=== PATIENT | female | born 1980 | race Caucasian/White ===

== ENCOUNTER 2016-09-18 09:40 | Emergency (ER) | payer MEDICAID ==
[~2016-09-18] VITALS: Ht 157.5 cm; Wt 59.0 kg
[~2016-09-18 09:40] MED LIST: ACET500C5 PO; HYDR-906 PO; IBUP-1542 PO; IBUP200C PO; OSLT75C PO; PROM6.25 PO; UDROBDM PO; [UNRECOGNIZED DRUG - REMARK]
[2016-09-18 11:00] VITALS: Ht 157.5 cm; Wt 59.0 kg
[2016-09-18] MEDS ORDERED: SOD CHLORIDE 0.9% 1,000 ML IV STA (11:01)
[2016-09-18] MEDS ORDERED: METOCLOPRAMIDE 10 MG INJ IV STA (11:01)
--- NOTE | 2016-09-18 11:44 | RADRPT ---
PROCEDURE: OBSTETRICAL ULTRASOUND WITH ENDOVAGINAL IMAGES CLINICAL INDICATION: PAIN TECHNIQUE: Multiple sonographic images of the pelvis were obtained utilizing a transabdominal and endovaginal technique. The images were reviewed on a PACS workstation. COMPARISON: Obstetrical ultrasound from 05/21/2016 LMP: 06/12/2016 FINDINGS: There is a single live intrauterine with heart rate of 159 beats per minute, mean sa c diameter of 4.20 cm, yolk sac, and crown-rump length of 4.84 cm which is consistent with a gestati onal age of 10 weeks, 5 days . The estimated date of delivery by ultrasound is 04/11/2017 . The estimated gestational age by LMP is 14 weeks, 0 days . The estimated date of delivery by LMP is it is 03/19/2017 . Bilateral ovaries are not visualized. There are no abnormal adnexal masses. No significant pelvic free fluid is identified. IMPRESSION: Single live intrauterine consistent with a gestational age of 10 weeks, 5 days . The estimated date of delivery is 04/11/2017 . Dating by ultrasound is within 3 weeks and 2 days of dating by LMP. Bilateral ovaries are not visualized. There are no abnormal adnexal masses. RPTAT: EE Physician Kizzy Date Time Electronically viewed and signed by Physician Kizzy on 09/18/2016 11:43 RA/
[2016-09-18 11:49] LABS: ADD SCAN DIFF NO
[2016-09-18 11:50] LABS: EOSINOPHILS % 0.6 % (0.0-7.0); HEMATOCRIT 39.5 % (37.0-47.0); HEMOGLOBIN 13.2 g/dl (12.0-16.0); LYMPHOCYTES # 0.8 10^3/ul (0.8-2.9); LYMPHOCYTES % 16.9 % (15.0-51.0); MEAN CORPUSCULAR HEMOGLOBIN 27.5 pg (29.0-33.0); MEAN CORPUSCULAR HGB CONC 33.4 g/dl (32.0-37.0); MEAN CORPUSCULAR VOLUME 82.3 fl (82.0-101.0); MEAN PLATELET VOLUME 10.3 fl (7.4-10.4); MONOCYTE # 0.5 10^3/ul (0.3-0.9); MONOCYTES % 10.9 % (0.0-11.0); NEUTROPHIL # 3.3 10^3/ul (1.6-7.5); NEUTROPHILS % 71.2 % (39.0-77.0); PLATELET COUNT 221 10^3/UL (140-415); RED CELL DISTRIBUTION WIDTH 13.3 % (11.5-14.5); WHITE BLOOD COUNT 4.7 10^3/ul (4.8-10.8)
[2016-09-18 12:07] LABS: ALBUMIN 3.8 g/dl (3.3-4.9)
[2016-09-18 12:08] LABS: POTASSIUM 3.3 mmol/L (3.5-5.1)
[2016-09-18 12:10] LABS: ALBUMIN/GLOBULIN RATIO 1.02; BILIRUBIN,INDIRECT 0.4 mg/dl (0-1.1); BILIRUBIN,TOTAL 0.4 mg/dl (0.2-1.3); CREATININE 0.48 mg/dl (0.44-1.00); TOTAL PROTEIN 7.5 g/dl (6.1-8.1)
[2016-09-18 12:11] LABS: CALCIUM 8.6 mg/dl (8.4-10.2)
[2016-09-18] MEDS ORDERED: POTASSIUM CHLORIDE (SR) 20 MEQ TAB PO STA (12:17)
[2016-09-18] MEDS ORDERED: ACETAMINOPHEN 500 MG TAB PO STA (12:22)
[2016-09-18] MEDS ORDERED: ACET500C5 PO (12:26)
[2016-09-18] MEDS ORDERED: METO10TA92 PO (12:26)
--- NOTE | 2016-09-18 12:31 | ERD ---
ER Documentation Chief Complaint Date/Time DATE: 09/18/16 TIME: 12:29 Chief Complaint c/o N/V/D since yesterday; no vag. bleeding HPI This 35 year female presents with nausea vomiting and diarrhea since yesterday. She denies fevers, vaginal bleeding or abdominal pain, dysuria. She is approximately 11 weeks by dates. She is a G4 para 1. She is receiving care but is unsure who her OB as per ROS All systems reviewed and are negative except as per history of present illness. Medications Home Meds Active Scripts Acetaminophen* (Tylophen*) 500 Mg Capsule, 1 CAP PO Q6H Y for PAIN AND OR ELEVATED TEMP, #15 CAP Prov:VINCENZO MEYER MD 09/18/16 Metoclopramide* (Reglan*) 10 Mg Tablet, 10 MG PO Q6 Y for NAUSEA AND/OR VOMITING , #20 TAB Prov:VINCENZO MEYER MD 09/18/16 Hydrocodone/Acetaminophen ([place]ia 5-325 Tablet) 1 Each Tablet, 1 TAB PO Q6H Y for PAIN, #20 TAB Prov:AMADOR ALBERTO 05/21/16 Ibuprofen* (Motrin*) 600 Mg Tab, 600 MG PO Q6, #30 TAB Prov:AMADOR ALBERTO 05/21/16 Acetaminophen* (Tylophen*) 500 Mg Capsule, 1 CAP PO Q6H Y for PAIN AND OR ELEVATED TEMP, #30 CAP Prov:HERMINIO RUIZ PA-C 05/21/16 Promethazine w/Codeine* (Phenergan w/Codeine* Syrup) 5 Ml Syrup, 5 ML PO QHS Y for COUGH, #40 ML 0 Refills Prov:DARNELL ORDAZ PA-C 07/26/15 Guaifenesin-Dextromethorphan* (Robitussin* DM) 100MG/10MG/5ML Syrup, 5 ML PO Q6H Y for COUGH, #120 ML 0 Refills Prov:DARNELL ORDAZ PA-C 07/26/15 Ibuprofen* (Ibuprofen*) 200 Mg Capsule, 200 MG PO Q6, #30 CAP 0 Refills Prov:DARNELL ORDAZ PA-C 07/26/15 Oseltamivir Phosphate* (Tamiflu*) 75 Mg Capsule, 75 MG PO BID, #10 CAP 0 Refills Prov:DARNELL ORDAZ PA-C 07/26/15 Reported Medications [Bc Pills - "Lestril"] No Conflict Check 10/14/12 Allergies Allergies: Coded Allergies: No Known Allergy (Unverified , 07/26/15) PMhx/Soc Medical and Surgical Hx: pt denies Medical Hx History of Surgery: Yes (APPENDECTOMY (2002)) Anesthesia Reaction: No Hx Neurological Disorder: No Hx Respiratory Disorders: No Hx Cardiac Disorders: No Hx Psychiatric Problems: No Hx Miscellaneous Medical Probl: No Hx Alcohol Use: No Hx Substance Use: No Hx Tobacco Use: No Physical Exam Vitals Vital Signs Date Time Temp Pulse Resp B/P Pulse Ox O2 Delivery O2 Flow Rate FiO2 09/18/16 11:00 98.2 75 18 113/76 100 Physical Exam Const: [] Alert, [id number] per Head: Atraumatic Eyes: Normal Conjunctiva ENT: Normal External Ears, Nose and Mouth. Neck: Full range of motion..~ No meningismus. Resp: Clear to auscultation bilaterally Cardio: Regular rate and rhythm, no murmurs Abd: Soft, non tender, non distended. Normal bowel sounds Skin: No petechiae or rashes Back: No midline or flank tenderness Ext: No cyanosis, or edema Neur: Awake and alert Psych: Normal Mood and Affect Result Diagram: 09/18/16 1120 09/18/16 1120 Results 24 hrs Laboratory Tests Test 09/18/16 11:20 White Blood Count 4.710^3/ul Red Blood Count 4.8010^6/ul Hemoglobin 13.2g/dl Hematocrit 39.5% Mean Corpuscular Volume 82.3fl Mean Corpuscular Hemoglobin 27.5pg Mean Corpuscular Hemoglobin Concent 33.4g/dl Red Cell Distribution Width 13.3% Platelet Count 87306^3/UL Mean Platelet Volume 10.3fl Neutrophils % 71.2% Lymphocytes % 16.9% Monocytes % 10.9% Eosinophils % 0.6% Basophils % 0.0% Nucleated Red Blood Cells % 0.0/100WBC Neutrophils # 3.310^3/ul Lymphocytes # 0.810^3/ul Monocytes # 0.510^3/ul Eosinophils # 0.010^3/ul Basophils # 0.010^3/ul Nucleated Red Blood Cells # 0.010^3/ul Sodium Level 134mmol/L Potassium Level 3.3mmol/L Chloride Level 100mmol/L Carbon Dioxide Level 22mmol/L Anion Gap 15 Blood Urea Nitrogen 7mg/dl Creatinine 0.48mg/dl Glucose Level 86mg/dl Calcium Level 8.6mg/dl Total Bilirubin 0.4mg/dl Direct Bilirubin 0.00mg/dl Indirect Bilirubin 0.4mg/dl Aspartate Amino Transf (AST/SGOT) 34IU/L Alanine Aminotransferase (ALT/SGPT) 33IU/L Alkaline Phosphatase 76IU/L Total Protein 7.5g/dl Albumin 3.8g/dl Globulin 3.70g/dl Albumin/Globulin Ratio 1.02 Lipase 30U/L Current Medications Medications (Trade) Dose Ordered Sig/Kath Route PRN Reason Start Time Stop Time Status Last Admin Dose Admin Sodium Chloride (NS) 1,000 ml @ 1,000 mls/hr Q1H STAT IV 09/18/16 11:01 09/18/16 12:00 DC 09/18/16 11:19 Metoclopramide HCl (Reglan) 10 mg ONCE STAT IV 09/18/16 11:01 09/18/16 11:04 DC 09/18/16 11:19 Potassium Chloride (Klor-Con 20) 40 meq ONCE STAT PO 09/18/16 12:17 09/18/16 12:21 DC Acetaminophen (Tylenol Tab) 500 mg ONCE STAT PO 09/18/16 12:22 09/18/16 12:23 DC Procedures/MDM Pelvic ultrasound shows a normal-appearing first trimester intrauterine without evidence of ectopic , acute findings. Potassium is 3.3 and CBC shows decreased leukocytes with no additional acute findings. Patient was given potassium 40 mg by mouth, Tylenol 500 mg and Reglan 10 mg IV in addition to 1 L normal saline IV. Patient felt better after observation treatment. Patient presents with vomiting diarrhea of one days duration. I suspect she has an acute viral gastroenteritis. There is no signs or symptoms of ectopic , acute abdomen, symptoms of UTI, obstruction, additional complications of or emergent causes of vomiting diarrhea. Patient will be treated with Reglan, instructions for clear fluids at home instructed to recheck with primary doctor this week return to the ER for new or worsening symptoms. Departure Diagnosis: Primary Impression: Vomiting and diarrhea Condition: Stable Patient Instructions: Vomiting And Diarrhea, Nonspecific (Adult) Additional Instructions: Examines normal hoy. Cheque otro vez con sanchez doctor primario en el proximo amador or regresa para mas o nueva simptomas. probablamente un virus que dura 2-4 amador. cheque otro rekha el proximo breanna para mas simptomas- vomito, dolor, carlyle, problemas con respirando, o con sanchez doctor primario. VINCENZO MEYER MD Sep 18, 2016 12:31
[2016-09-18 13:08] VITALS: BP 108/67; PULSE 83; RESP 20; TEMP 98.3
[2016-09-18 13:59] LABS: ADD UMIC YES; URINE GLUCOSE (Dip) NEGATIVE (NEGATIVE); URINE TOTAL PROTEIN (Dip) NEGATIVE (NEGATIVE)
[2016-09-18 14:00] LABS: URINE BILIRUBIN (Dip) NEGATIVE (NEGATIVE); URINE BLOOD (Dip) TRACE (NEGATIVE); URINE KETONES (Dip) 1+ (NEGATIVE); URINE NITRITE (Dip) NEGATIVE (NEGATIVE); URINE UROBILINOGEN (Dip) 0.2 E.U./dL (0.1-1.0)
[2016-09-18 14:01] LABS: URINE LEUKOCYTE ESTERASE (Dip) 1+ (NEGATIVE)
[2016-09-18 14:07] LABS: BACTERIA,URINE FEW; URINE COLOR LT. YELLOW (YELLOW); URINE RBCS 0-2 /HPF (0)
== END 2016-09-18 13:09 | disposition home or self-care (01) ==
LOC: FTE 09:40
DX: O21.9 Vomiting of pregnancy, unspecified (principal); O99.89 Other specified diseases and conditions complicating pregnancy, childbirth and the puerperium; R19.7 Diarrhea, unspecified; Z3A.11 11 weeks gestation of pregnancy
CPT/HCPCS: 36415; 76801; 80053; 81001; 83690; 85025; 96374; J2765; J7030; Z7502; Z7610; 81003

== ENCOUNTER 2016-12-23 10:12 | Outpatient (CLI) | payer MEDICAID ==
[~2016-12-23] VITALS: Ht 152.4 cm; Wt 62.7 kg
[~2016-12-23 10:12] MED LIST changes: +METO10TA92 PO
[2016-12-23] MEDS ORDERED: PRENAT PO (10:34)
[2016-12-23] MEDS ORDERED: FER325 PO (10:34)
[2016-12-23 10:35] VITALS: BP 108/76; PULSE 95; RESP 18; Ht 152.4 cm; Wt 62.7 kg
--- NOTE | 2016-12-23 11:46 | RADRPT ---
PROCEDURE: OB ultrasound for biophysical profile CLINICAL INDICATION: Decreased movement TECHNIQUE: Multiple sonographic images of the pelvis were obtained. Transabdominal views of the g ravid uterus are available for review. The images were reviewed on a PACS workstation. COMPARISON: None FINDINGS: breathing movement = 2/2 tone = 2/2 motion = 2/2 CECILIO = 2/2 CECILIO = 15.1 cm Single live intrauterine with cardiac activity of 126 bpm. position is breech . The placenta is anterior. IMPRESSION: 1. Single live intrauterine gestation. 2. Biophysical profile = 8/8. 3. CECILIO = 15.1 cm. 4. Breech presentation. RPTAT: HH .Muriel Philippe MD, Date Time Electronically viewed and signed by .Muriel Philippe MD, on 12/23/2016 11:45 .G/
--- NOTE | 2016-12-23 12:17 | CONS ---
Date/Time of Note Date/Time of Note DATE: 12/23/16 TIME: 12:09 Consultation Date/Type/Reason Admit Date/Time December 23, 2016 OB triage consult Reason for Consultation This patient is a 36 years old 4 para 2 1 with 2 spontaneous vaginal delivery in the past. Her date of confinement is March 30, 2017 which makes her 26 weeks and 1 day today. She came to OB triage today complaining of low movement since yesterday On examination she is a well-developed well-nourished lady at midterm her body weight was 138 pounds. Her general vital signs are within normal limits with blood pressure of 108/76 pulse rate 95,, respiration 18 and temperature 98.5,, oxygen saturation of room temperature was 99% Constitutional: No chills, No diaphoresis, No disoriented, No febrile, No improved, No no complaints, No other, No poor po, No requiring IVF, No requiring O2 Eyes: No discharge, No no complaints, No other, No pain, No redness, No visual change ENT: No bleeding, No congestion, No discharge, No dysphagia, No no complaints, No other, No pain, No sore throat Respiratory: No cough, No no complaints, No other, No pain, No pleuritic pain, No shortness of breath, No sputum, No wheezing Cardiovascular: No chest pain, No edema, No lightheadedness, No no complaints, No orthopenea, No other, No palpitations, No paroxysmal nocturnal dyspnea Gastrointestinal: No blood, No constipation, No decreased appetite, No diarrhea , No flatus, No nausea, No no complaints, No other, No pain, No passing stool, No vomiting Genitourinary: other (Due to lack of contraction pelvic exam was not performed) , No bleeding, No discharge, No dysuria, No flank pain, No hematuria, No no complaints Musculoskeletal: No back pain, No bone/joint pain, No neck pain, No no complaints, No other, No restricted range of motion, No swelling Skin: No bruising, No erythema, No laceration, No no complaints, No other, No pruritis, No rash, No skin lesions Neurologic: other (Normal knee-jerk reflex), No confusion, No dizziness, No focal-weakness, No headache, No no complaints , No seizure, No syncope Endocrine: No dry skin, No no complaints, No other, No polydypsia, No polyuria , No temp intolerance Additional Comments An ultrasound study was performed for her the report was a single live intrauterine with heart activity of 1 26 bpm, breech presentation Her biophysical profile was 8/8 with CECILIO of 15.1 cm Disposition with these positive finding patient was reassured and was discharged home to be followed in in her obstetrical clinic Social History Smoking Status: Never smoker Exam/Review of Systems Vital Signs Vitals Vital Signs Date Time Temp Pulse Resp B/P Pulse Ox O2 Delivery O2 Flow Rate FiO2 12/23/16 10:35 98.5 95 18 108/76 99 Room Air YAAKOV LINDQUIST MD Dec 23, 2016 12:16
--- NOTE | 2016-12-23 12:27 | TRIAGE ---
OB Triage Datetime Report Generated by CPN: 12/23/2016 12:27 Datetime: 12/23/2016 10:49 Stage of : OB Triage Maternal Assessment Level of Consciousness: Fully Conscious Labor Evaluation Frequency: NONE Monitor Mode: External Resting Tone Ramsay: Relaxed Heart Rate FHR Baseline Rate: 135 Monitor Mode: External US Variability: Moderate 6-25 bpm Accelerations: 10X10 Decelerations: AGA Pain Assessment Pain Scale: 0 Pain Goal: 3 Vaginal Exam Membrane Status: Intact Vaginal Bleeding: None Datetime: 12/23/2016 10:32 Assessment Type: Triage Maternal Assessment Level of Consciousness: Fully Conscious DTR's/Clonus: DTRs 2+; No Clonus Headache: Denies Blurred Vision: No Respiratory Effort: Unlabored; Regular Rhythm; Equal Expansion Breath Sounds, Left: Clear and Equal Breath Sounds, Right: Clear and Equal Nausea/Vomiting: Denies RUQ Epigastric Pain: Denies Lower Extremities Edema: None Degree: None Upper Extremities Edema: None Degree: None Facial Edema: None Fall Risk Assessment History of Falling: (0) No Secondary Diagnosis: (0) No Ambulatory Aid: (0) Bedrest/Nurse Assist IV Therapy: (0) No Gait: (0) Normal/Bedrest/Immobile Mental Status: (0) Oriented to Own Ability Fall Score: 0 Fall Risk Score Definition: No Risk: No action required Datetime: 12/23/2016 10:28 Time of Arrival: 12/23/2016 10:00 EGA: 26.1 Arrived By: Ambulatory Arrived From: Home Chief Complaint: C/O DFM Movement: Decreased Contractions: Denies/Absent Rupture of Membranes: Denies Vaginal Bleeding: None Vaginal Discharge: Denies Recent Sexual Intercouse: Denies Abdominal Trauma: Not Applicable Patient Complaints: None Time Provider Notified: 12/23/2016 10:40 Provider Notified: ROCIO Monitor Mode: External US
== END 2016-12-23 12:30 | disposition home or self-care (01) ==
LOC: OBT 10:12 → L-D 10:13 → OBT 12:30
PROVIDERS: ATTEND Obstetrics & Gynecology
DX: O36.8120 Decreased fetal movements, second trimester, not applicable or unspecified (principal); Z3A.26 26 weeks gestation of pregnancy
CPT/HCPCS: 76818; Z7500; G0463

== ENCOUNTER 2017-03-20 10:31 | Inpatient (IN) | payer BC, MEDICAID ==
[~2017-03-20] VITALS: Ht 152.4 cm; Wt 64.9 kg
[~2017-03-20 10:31] MED LIST changes: -ACET500C5 PO; +FER325 PO; -HYDR-906 PO; -IBUP-1542 PO; -IBUP200C PO; -METO10TA92 PO; -OSLT75C PO; +PRENAT PO; -PROM6.25 PO; -UDROBDM PO; -[UNRECOGNIZED DRUG - REMARK]
[2017-03-20 10:51] VITALS: BP 116/69; PULSE 94; Ht 152.4 cm; Wt 64.9 kg
--- NOTE | 2017-03-20 11:56 | RADRPT ---
PROCEDURE: US OB biophysical profile. CLINICAL INDICATION: decreased movements, SROM TECHNIQUE: Multiple sonographic images of the pelvis were obtained. The images were reviewed on a PACS workstation. COMPARISON: No prior studies are available for comparison. FINDINGS: There is a single viable intrauterine gestation. Cardiac activity is present with 134 beats per min nicolás. There is a vertex presentation. The placenta is anterior. There is no evidence of placental abruption. There is a decreased amount of amniotic fluid with an CECILIO = 7.5 cm. Biophysical profile: movement 2/2 tone 2/2. breathing 2/2 CECILIO 2/2 Total 01/13 RPTAT: AA . IMPRESSION: Normal biophysical profile. Decreased CECILIO. .Eliceo Low MD, Date Time Electronically viewed and signed by .Eliceo Low MD, MD on 03/20/2017 11:55 .S/
[2017-03-20] MEDS ORDERED: LACTATED RINGER'S 1,000 ML IV SCH (12:03)
[2017-03-20] MEDS ORDERED: BUTORPHANOL 2 MG INJ IV PRN (12:30)
[2017-03-20] MEDS ORDERED: AMPICILLIN 2 GM/NS (PMX) 100 ML IV ONE (12:30)
[2017-03-20] MEDS ORDERED: MINERAL OIL LIGHT 10 ML VIAL TOP PRN (12:30)
[2017-03-20] MEDS ORDERED: OXYTOCIN 30 UNITS/LR 500 ML IV SCH ×3 (12:30)
[2017-03-20] MEDS ORDERED: IBUPROFEN 600 MG TAB PO PRN (12:30)
[2017-03-20] MEDS ORDERED: METHYLERGONOVINE 0.2 MG INJ IM PRN (12:30)
[2017-03-20] MEDS ORDERED: LIDOCAINE 1% (MPF) 30 ML INJ INJ PRN (12:30)
[2017-03-20] MEDS ORDERED: OXYTOCIN 30 UNITS/LR 500 ML IV PRN (12:30)
[2017-03-20] MEDS ORDERED: CARBOPROST 250 MCG INJ IM PRN (12:30)
[2017-03-20] MEDS ORDERED: LACTATED RINGER'S 1,000 ML IV PRN (12:30)
[2017-03-20] MEDS ORDERED: MISOPROSTOL 200 MCG TAB PR PRN (12:30)
[2017-03-20 12:54] LABS: BASOPHILS % 0.5 % (0.0-2.0); EOSINOPHILS # 0.1 10^3/ul (0.0-0.5); EOSINOPHILS % 1.8 % (0.0-7.0); HEMATOCRIT 41.7 % (37.0-47.0); HEMOGLOBIN 13.7 g/dl (12.0-16.0); LYMPHOCYTES # 1.8 10^3/ul (0.8-2.9); LYMPHOCYTES % 22.8 % (15.0-51.0); MEAN CORPUSCULAR HEMOGLOBIN 27.6 pg (29.0-33.0); MEAN CORPUSCULAR HGB CONC 32.9 g/dl (32.0-37.0); MEAN CORPUSCULAR VOLUME 83.9 fl (82.0-101.0); MEAN PLATELET VOLUME 11.4 fl (7.4-10.4); MONOCYTE # 0.5 10^3/ul (0.3-0.9); NEUTROPHIL # 5.5 10^3/ul (1.6-7.5); NEUTROPHILS % 68.6 % (39.0-77.0); PLATELET COUNT 188 10^3/UL (140-415); RED BLOOD COUNT 4.97 10^6/ul (4.20-5.40); RED CELL DISTRIBUTION WIDTH 14.5 % (11.5-14.5)
[2017-03-20 13:10] LABS: INR 0.91; PROTIME 12.2 Sec (12.2-14.2)
[2017-03-20 13:11] LABS: PARTIAL THROMBOPLASTIN TIME 28.5 Sec (25.0-35.0)
--- NOTE | 2017-03-20 13:37 | TRIAGE ---
OB Triage Datetime Report Generated by CPN: 03/20/2017 13:37 Datetime: 03/20/2017 12:50 Assessment Type: Admission Assessment Headache: Denies Blurred Vision: No Respiratory Effort: Unlabored Breath Sounds, Left: Clear and Equal Breath Sounds, Right: Clear and Equal Nausea/Vomiting: Denies RUQ Epigastric Pain: Denies Lower Extremities Edema: None Upper Extremities Edema: None Facial Edema: None Fall Risk Assessment History of Falling: (0) No Labor Evaluation Frequency: 2-5 Duration (sec)2399: 40-80 Quality: Moderate Pattern: Normal: <= 5 Contractions in 10 Minutes Resting Tone [place]: Relaxed Heart Rate FHR Baseline Rate: 135 Variability: Minimal - Undetectable to <=5 bpm Accelerations: 10X10 Decelerations: Early Category: Category I Pain Assessment Pain Scale: 4 Pain Presence: Intermittent Pain Type: Cramping Pain Location: Abdomen Pain Goal: 4 Membrane Status: Ruptured Membranes Ruptured Date/Time: 03/20/2017 06:00 Amniotic Fluid Color: Clear Amniotic Fluid Amount: Moderate Amniotic Fluid Odor: Normal Datetime: 03/20/2017 12:00 Stage of : Labor Headache: Denies Nausea/Vomiting: Denies RUQ Epigastric Pain: Denies Labor Evaluation Frequency: 4-7 Duration (sec)2399: 40-80 Quality: Moderate Pattern: Normal: <= 5 Contractions in 10 Minutes Resting Tone [place]: Relaxed Heart Rate FHR Baseline Rate: 135 Monitor Mode: External US FHR Baseline Changes: No Baseline Change Variability: Moderate 6-25 bpm Accelerations: 15X15 Decelerations: None Category: Category I Pain Presence: Intermittent Pain Type: Cramping Pain Location: Abdomen Membrane Status: Ruptured Datetime: 03/20/2017 11:44 Stage of : Labor Datetime: 03/20/2017 10:58 Stage of : OB Triage Datetime: 03/20/2017 10:42 Stage of : OB Triage Assessment Type: Triage Maternal Assessment Level of Consciousness: Fully Conscious DTR's/Clonus: DTRs 2+; No Clonus Headache: Denies Blurred Vision: No Respiratory Effort: Unlabored; Regular Rhythm; Equal Expansion Breath Sounds, Left: Clear and Equal Breath Sounds, Right: Clear and Equal Nausea/Vomiting: Denies RUQ Epigastric Pain: Denies Facial Edema: None Temperature Route: Axillary Fall Risk Assessment History of Falling: (0) No Secondary Diagnosis: (0) No Ambulatory Aid: (0) Bedrest/Nurse Assist IV Therapy: (0) No Gait: (0) Normal/Bedrest/Immobile Mental Status: (0) Oriented to Own Ability Fall Score: 0 Fall Risk Score Definition: No Risk: No action required Labor Evaluation Frequency: X1 Monitor Mode: External Duration (sec)2399: 50 Quality: Mild Pattern: Normal: <= 5 Contractions in 10 Minutes Resting Tone [place]: Relaxed Interventions: Sterile Vaginal Exam Heart Rate FHR Baseline Rate: 135 Monitor Mode: External US Variability: Moderate 6-25 bpm Accelerations: 10X10 Decelerations: None Category: Category I Pain Assessment Pain Scale: 2 Pain Presence: Intermittent Pain Type: Cramping; Contraction Pain Location: Abdomen Pain Goal: 3 Pain Relief Measures: Comfort Measures Vaginal Exam Dilatation (cms): 2.5 Effacement (%): 50 Station: -3 Exam By: S HUSAM Membrane Status: Intact Nitrazine: EQUIVACAL Datetime: 03/20/2017 10:40 Time of Arrival: 03/20/2017 12:00 EGA: 38.4 Arrived By: Ambulatory Arrived From: Home Chief Complaint: C/O SROM AT 0600 CL FLUID, SCANT BLEEDING, OCCAS UCS Movement: Present Contractions: Occasional Time Contractions Began: 03/20/2017 09:00 Contractions: Q30 Rupture of Membranes: Ruptured Vaginal Bleeding: Scant Vaginal Discharge: Denies Recent Sexual Intercouse: Denies Abdominal Trauma: Not Applicable Patient Complaints: Contractions; Cramping Time Provider Notified: 03/20/2017 10:55 Provider Notified: ROCIO Initial Plan: MONITOR, ROM PLUS, NITRAZINE, VE Datetime: 12/23/2016 10:32 Fall Score: 0 Fall Risk Score Definition: No Risk: No action required Membranes Rupture Method: Spontaneous Presentation 'A': Cephalic Datetime: 12/23/2016 10:28 EGA: 26.1
[2017-03-20] MEDS ORDERED: FENTAnyl 2MCG/ML-ROPIV 0.2% 100 ML ONE (14:26)
[2017-03-20] MEDS ORDERED: ONDANSETRON 4 MG INJ IV PRN (15:00)
[2017-03-20] MEDS ORDERED: DIPHENHYDRAMINE 50 MG INJ IV PRN (15:00)
[2017-03-20] MEDS ORDERED: FENTAnyl 2MCG/ML-ROPIV 0.2% 100 ML BAG EPI SCH (15:00)
[2017-03-20] MEDS ORDERED: NALOXONE (0.4 MG/ML) INJ IV PRN (15:00)
[2017-03-20] MEDS ORDERED: AMPICILLIN 1 GM/NS (PMX) 50 ML IV SCH (16:30)
--- NOTE | 2017-03-20 18:26 | LDN ---
Date/Time of Note Date/Time of Note DATE: 03/20/17 TIME: 18:23 Delivery Summary Normal spontaneous vaginal delivery of a baby girl from for incision shoulders delivered with no difficulty rest of the baby's body follow cord clamped after stopped pulsation placenta spontaneous expulsion perineovaginal examination no laceration noted blood loss 260 cc Weeks of Gestation 38 weeks 4 days Placenta Delivered: Spontaneously Meconium: none Episiotomy: No Laceration repair: None Anesthesia type: Epidural Sponge & Needle done & correct: Yes All needle counts correct: Yes Any foreign bodies felt in the: No Problems: Infant Delivery Information Sex Infant Sex: female Apgars 1 Minute: 9 5 Minute: 9 Suctioning Nose & mouth suctioned at michelle: Yes Delee suction performed: No Umbilical Cord Umbilical cord with: 3 Vessels Cord presentations: nuchal cord Cord Blood was obtained: Yes ANGEL CHAN MD Mar 20, 2017 18:26
--- NOTE | 2017-03-20 18:34 | HP ---
Date/Time of Note Date/Time of Note DATE: 03/20/17 TIME: 18:26 OB - History Hx of Present Free Text/Dictation 36 years old female with EDC March 29, 2017 admitted to the hospital in labor with a history of premature rupture of membrane as of 6: 00 AM March 20, 2017 pelvic examination on admission cervix 2 cm dilated 60% effaced vertex is -2 -3 station contraction 3-5 minutes apart category 1 heart rate Estimated Due Date: Apr 04, 2017 : 4 Para: 2 Spontaneous : 1 Care: Good Care Ultrasounds: Normal mid trimester US Obstetrical Complications: None Medical Complications: None Past Family/Social History * Past Medical, Surgical, Family and Obstetric Histories reviewed from chart. Rubella: immune RPR/VDRL: Negative GBS Status: Negative HBsAG: Negative OB Admission Exam Vital Signs Vital Signs Vital Signs Date Time Temp Pulse Resp B/P Pulse Ox O2 Delivery O2 Flow Rate FiO2 03/20/17 10:51 98.0 94 116/69 Physical Exam HEENT: WNL Heart: Rhythm Normal Lungs: Clear, Equal Abdomen: WNL Extremities: Normal Reflexes: Normal Cervical Dilatation: 3cm Effacement: 50% Station: -2 Membranes: Ruptured Amniotic Fluid: Clear Accelerations: Accelerations Present Decelerations: No Decelerations Varibility: Moderate Contractions on Admission: >10 Minutes Apart Intensity: Moderate Last 72 hours Lab Results CBC & BMP 03/20/17 12:15 OB Assessment/Plan Reason for admission: other (Premature rupture of membrane early labor) Other plan: 36 years old female SAB 1, premature rupture member and as of 6 AM today admitted in early labor required labor augmentation cervical dilatation3 centimeter 60% effaced vertex at -2 station, will be covered with antibiotic and labor augmentation with Pitocin IV infusion. ANGEL CHAN MD Mar 20, 2017 18:34
[2017-03-20] MEDS ORDERED: ACETAMINOPHEN 500 MG TAB PO ONE (21:39)
--- NOTE | 2017-03-20 23:24 | QN ---
Documentation Comment Laborist note Called to assess this pt due to excessive bleeding after a vaginal delivery with Dr Brannon. EBL was noted at 250 ml after the delivery. Pt had a uterus displaced to the left some but was not enlarged. The bladder was emptied of 500 ml. The RN had noted 250 ml of bleeding with some small clots. On exam there was an unrepaired laceration of the left inner labia that was bleeding and there was a collection of blood clots at the os although the main body of the uterus was well contracted. 250 ml of blood was removed. The pt was given a dose of Methergine and then the laceration was repaired. The pt was examined again and there was a smaller amount of blood present at the os again but still with small clots. 4 tabs of Cytotec were given p.o.. A alvarez catheter was placed and a lot of urine drained again. The pt seemed to do better with normal minimal bleeding noted. She was hydrated, given some Tylenol, vital signs were noted to be normal and she was eventually deemed stable for the floor. A CBC was ordered for the AM. SAUD ORTIZ MD Mar 20, 2017 23:24
[2017-03-20 23:30] VITALS: BP 116/70; PULSE 80; RESP 18
[2017-03-21] VITALS: BP 126/86; PULSE 80; RESP 19
[2017-03-21] MEDS ORDERED: ACETAMINOPHEN 325 MG TAB PO PRN
[2017-03-21] MEDS ORDERED: ONDANSETRON 4 MG INJ IV PRN
[2017-03-21] MEDS ORDERED: WITCH HAZEL/GLYCERIN PAD PR PRN
[2017-03-21] MEDS ORDERED: LANOLIN 7 GM TUBE TOP PRN
[2017-03-21] MEDS ORDERED: HYDROCODONE/APAP (5/325) TAB PO PRN ×2
[2017-03-21] MEDS ORDERED: OXYCODONE/ASPIRIN (4.88/325) TAB PO PRN ×2
[2017-03-21] MEDS ORDERED: BENZOCAINE 20% 56 ML SPRAY TOP PRN
[2017-03-21] MEDS ORDERED: DIBUCAINE 1% 30 GM OINT PR PRN
[2017-03-21] MEDS: IBUPROFEN 600 MG TAB PO SCH ×5 (00:21→23:18)
[2017-03-21] MEDS: OXYTOCIN 30 UNITS/LR 500 ML IV SCH ×2 (00:28→03:43)
[2017-03-21 04:18] VITALS: BP 106/58; PULSE 76; RESP 18
[2017-03-21 08:00] VITALS: BP 96/61; PULSE 70; RESP 18
[2017-03-21] MEDS: SENNA/DOCUSATE NA (8.6MG/50MG) TAB PO SCH ×2 (08:21→21:53)
[2017-03-21 08:22] LABS: BASOPHILS % 0.3 % (0.0-2.0); EOSINOPHILS # 0.2 10^3/ul (0.0-0.5); EOSINOPHILS % 1.5 % (0.0-7.0); HEMOGLOBIN 12.2 g/dl (12.0-16.0); LYMPHOCYTES # 2.4 10^3/ul (0.8-2.9); LYMPHOCYTES % 22.5 % (15.0-51.0); MEAN CORPUSCULAR HEMOGLOBIN 27.7 pg (29.0-33.0); MEAN CORPUSCULAR VOLUME 83.9 fl (82.0-101.0); MEAN PLATELET VOLUME 11.2 fl (7.4-10.4); MONOCYTE # 0.8 10^3/ul (0.3-0.9); MONOCYTES % 7.5 % (0.0-11.0); NEUTROPHIL # 7.4 10^3/ul (1.6-7.5); NEUTROPHILS % 67.7 % (39.0-77.0); PLATELET COUNT 165 10^3/UL (140-415); RED BLOOD COUNT 4.41 10^6/ul (4.20-5.40); RED CELL DISTRIBUTION WIDTH 14.2 % (11.5-14.5); WHITE BLOOD COUNT 10.9 10^3/ul (4.8-10.8)
[2017-03-21] MEDS ORDERED: INFLUENZA VIRUS VACCINE 0.5 ML (DISPENSING) IM* ONE (09:00)
[2017-03-21 12:00] VITALS: BP 107/56; PULSE 70; RESP 17
--- NOTE | 2017-03-21 12:52 | QN ---
Documentation Comment POST DAY 1 AFEBRILE, MINIMAL LOCHIA ,AMBULATION ENCOURAGED BUSH DISCONTINUED. ANGEL CHAN MD Mar 21, 2017 12:52
[2017-03-21 16:00] VITALS: BP 99/72; PULSE 80; RESP 18
[2017-03-21 20:00] VITALS: BP 110/61; PULSE 72; RESP 20
[2017-03-22 05:00] VITALS: BP 99/66; PULSE 75; RESP 20
[2017-03-22] MEDS: IBUPROFEN 600 MG TAB PO SCH ×2 (05:33→12:36)
[2017-03-22] MEDS ORDERED: MEASLES,MUMPS,RUBELLA VACCINE INJ SC* ONE (09:00)
[2017-03-22] MEDS: SENNA/DOCUSATE NA (8.6MG/50MG) TAB PO SCH (09:29)
--- NOTE | 2017-03-22 11:13 | PD.PPDC ---
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
--- NOTE | 2017-03-22 11:23 | DS ---
Date/Time of Note Date/Time of Note DATE: 03/22/17 TIME: 11:16 Discharge Summary Admission/Discharge Info Admit Date/Time Mar 20, 2017 at 11:50 Discharge Date/Time March 22, 2017 1230 Discharge Diagnosis Post normal vaginal delivery day2 Patient Condition: Good Procedures Normal spontaneous vaginal delivery Hx of Present Illness Term in labor Hospital Course Hospital course satisfactory except she had bleeding, apparently from a left inner labia laceration which was not detected required repair, she did well the rest of the period, at the time of discharge her hemoglobin was 12.2 hematocrit 37 WBC 10.9 platelet 165 Home Meds Reported Medications Ferrous Sulfate* (Ferrous Sulfate*) 325 Mg Tabec, 325 MG PO DAILY, TAB 12/23/16 Multivit/Min/Fol Ac/Iron/Pren* ( S*) 1 Tab Tab, 1 TAB PO DAILY, TAB 12/23/16 Follow-up Plan instruction given recommended to make appointment in 2 weeks to be seen at the clinic Primary Care Provider Care Physician No Primary Time spent on discharge: < 30 minutes ANGEL CHAN MD Mar 22, 2017 11:23
== END 2017-03-22 14:52 | disposition home or self-care (01) | DRG 775 ==
LOC: L-D 10:31 → OBT 10:31 → L-D 11:50 → OBT 11:53 → PP1 23:27
PROVIDERS: ADMIT Obstetrics & Gynecology; ATTEND Obstetrics & Gynecology
PROC: 10E0XZZ Delivery of Products of Conception, External Approach (ICD-10-PCS; principal; 2017-03-20)
PROC: 3E0P3VZ Introduction of Hormone into Female Reproductive, Percutaneous Approach (ICD-10-PCS; 2017-03-20)
DX: O69.81X0 Labor and delivery complicated by cord around neck, without compression, not applicable or unspecified (principal); Z37.0 Single live birth; Z3A.38 38 weeks gestation of pregnancy
CPT/HCPCS: 36415; 62319; 76818; 84112; 85025; 85610; 85730; 86592; 86850; 86900; 86901; 86920; 90686; G0463; J0290; J2210; J2590; J3010; J7120